=== PATIENT | male | born 1955 | race Caucasian/White ===

== ENCOUNTER 2025-07-07 12:35 | Emergency (ER) | payer MEDICARE, OTHER | END 2025-07-07 17:05 | LOC: JP.ED 12:35 | DX: S01.312A Laceration without foreign body of left ear, initial encounter (principal); I10 Essential (primary) hypertension; Z86.16 Personal history of COVID-19; Z87.891 Personal history of nicotine dependence; W22.8XXA Striking against or struck by other objects, initial encounter | CPT/HCPCS: 96372; 99282; 99284; J0690 ==